=== PATIENT | male | born 1980 | race Caucasian/White ===

== ENCOUNTER → 2017-01-06 | Outpatient (CLI) | payer OTHER ==
[2017-01-06 10:01] LABS: ALT/SGPT 64 U/L (12-78); AST/SGOT 23 U/L (15-37); BLOOD UREA NITROGEN 16 mg/dl (7-18); BUN/CREATININE RATIO 12.7 (10-20); CALCIUM 8.9 mg/dl (8.5-10.1); CARBON DIOXIDE 28 mmol/L (21-32); CHLORIDE 107 mmol/L (98-107); GLUCOSE 95 mg/dl (70-99); POTASSIUM 3.8 mmol/L (3.5-5.1); SODIUM 140 mmol/L (136-145)
[2017-01-06 10:11] LABS: ALB/GLOB RATIO 1.2 (0.9-2); ALKALINE PHOSPHATASE 98 U/L (45-117)
== END | disposition home or self-care (01) ==
LOC: C.LAB 07:07
PROVIDERS: ATTEND Family Medicine
DX: E66.8 Other obesity (principal)